=== PATIENT | male | born 1950 | race Caucasian/White ===

== ENCOUNTER 2025-02-19 07:34 | Emergency (ER) | payer MEDICARE, OTHER, SELFPAY ==
[2025-02-19 08:05] VITALS: BP 151/87; PULSE 87; RESP 15; TEMP 36.8; O2SAT 96
--- NOTE | 2025-02-19 08:33 | DI.CT_ITS ---
Exam(s) CT ABDOMEN PELVIS W EXAM: CT ABDOMEN PELVIS W CLINICAL HISTORY: Left flank pain TECHNIQUE: Imaging Protocol: Axial computed tomography images with coronal and sagittal reformatted images were created and reviewed. CONTRAST MATERIAL: Intravenous: Omnipaque 350 Contrast volume:100 mL Oral: No COMPARISON: No exams were available for comparison FINDINGS: ABDOMEN: Lung Bases: Coronary artery calcifications are present. There is a small hiatal hernia. Liver: Normal density. There is a tiny cyst in the caudal aspect of the right lobe of the liver. No suspicious hepatic masses are present. Portal, Superior Mesenteric, and Splenic Veins: Unremarkable. Gallbladder and Biliary Tract: No radiodense calculus or dilation. Pancreas: Normal density, no abnormal calcifications or inflammatory process. Spleen: Normal. Adrenals: No masses seen. Kidneys: Normal size, contour and axis. There is left nephrolithiasis. There is a 1.0 x 0.7 x 1.4 cm stone in the lower pole of the left kidney. There are 2 stones seen in the proximal left ureter causing mild hydronephrosis. The larger more distal measures 5 mm. The smaller more proximal measures 3 mm. There are bilateral simple renal cysts. No follow-up is recommended. Abdominal Aorta: Abdominal portion non-dilated. Atherosclerotic calcification is present. There is a 3 cm infrarenal abdominal aortic aneurysm. Bowel: There is diverticulosis of the colon. There is no evidence of acute diverticulitis. There is no evidence of bowel obstruction or pneumatosis. There is mild thickening of the wall of the mid sigmoid colon. No pericolonic inflammation is seen. Appendix is unremarkable. Peritoneal Cavity: No ascites, collection or mesenteric inflammatory response. No free air. Lymph Nodes: Within normal limits. Bones: Within normal limits for the patient's age. Soft Tissues: Small fat containing right inguinal hernia. PELVIS: Bladder: Symmetric distention, no gross wall thickening. Reproductive Organs: Unremarkable as visualized. Lymph Nodes: Within normal limits. Bones: Within normal limits for the patient's age. IMPRESSION: 1. Two stones seen in the proximal left ureter causing mild hydronephrosis. 2. Left nephrolithiasis. 3. 3 cm infrarenal abdominal aortic aneurysm. 4. Colonic diverticulosis. 5. Mild thickening of the wall of the mid sigmoid colon without pericolonic inflammation. This may be chronic. Outpatient evaluation with colonoscopy and/or barium enema is recommended for further characterization. Unexpected findings RADIATION DOSE DELIVERED: 536.09mGy.cm Total DLP DATA REPOSITORY: All CT scans at this facility are submitted to the National Radiology Data Registry (NRDR) Dose Index Registry (DIR) with the [employer] ([employer]). RADIATION OPTIMIZATION: All CT scans at this facility use at least one of these dose optimization techniques: automated exposure control; mA and/or kV adjustment per patient size (includes targeted exams where dose is matched to clinical indication); or iterative reconstruction.
--- NOTE | 2025-02-19 08:36 | W.ED.GENAD ---
Discharge Plan Disposition Patient Disposition: Home Discharge Details Clinical Impression: Ureterolithiasis, Hydronephrosis, left, AAA (abdominal aortic aneurysm) without rupture Primary Care Provider: Rose,Local ED Provider: Herman Faulkner Home Meds and New Rx's Prescriptions: New tamsulosin 0.4 mg capsule 0.4 mg PO DAILY Qty: 14 0RF Continued metformin 500 mg tablet 500 mg PO BID Discharge Instructions Instructions: Kidney stone diet Additional Instructions: You are seen in the emergency department for your flank pain. You are found to have 2 kidney stones on the left the larger of which measures 5 mm. Please take this medication that you have been prescribed in an attempt to pass your stone. As we discussed you develop nausea vomiting worsening pain or have any other concerns please return to the emergency department. Please call the urology clinic tomorrow to touch base with them. They are expecting your call: [phone]. For your pain please take medications as follows: 1. Take acetaminophen (Tylenol), 1,000 mg (two 500 mg tabs) every 6 hours You may also take the stronger opiate medication for pain. Please do not drive or drink alcohol after taking this opiate medication. As we discussed your CT scan found an incidental finding. You have an enlarged abdominal aorta which is called an aneurysm. Please follow-up with your primary care provider concerning this incidental finding for which you will likely benefit from an ultrasound. HPI General Date/Time Provider Initiated Documentation: 02/19/25 07:38. HPI Narrative: MDM This is an overall quite well-appearing normothermic and not tachycardic 75-year-old male with left flank pain nausea and vomiting concerning for ureterolithiasis versus diverticulitis. Patient will undergo CT scan. No pain out of proportion to suggest necrotizing soft tissue infection. No dysuria or frequency to suggest UTI however will obtain urinalysis given ureterolithiasis is on the differential. Given age will defer ketorolac. No chest pain to suggest ACS so did not obtain ECG. No cough to suggest pneumonia and no fever so I did not order chest x-ray. No right lower quadrant tenderness to suggest appendicitis. No testicular pain to suggest torsion. No trauma to the chest to suggest pneumothorax. No history of AAA to suggest ruptured AAA. 9:44 AM Comprehensive metabolic panel showing elevated renal function no prior for comparison. Mild anion gap acidosis hyperglycemia but normal bicarbonate??not consistent with DKA. Urinalysis showing large blood nitrite negative. Normal pH. Leuk esterase negative. Glycosuria. CBC showing leukocytosis mild erythrocytosis. No thrombocytopenia. 11 AM Patient takes 40 units daily subcutaneous degludec. Will convert to glargine by decreasing by 20% to 32 units per recommendation from pharmacy. 12:15 PM I spoke with Dr. Rivers who reviewed the patient's imaging. Patient was found to have 3 left-sided ureterolithiasis causing mild hydronephrosis. Patient will deserve an empiric trial of discharge with expectant outpatient management. Will pass along urology phone number. Will counseling psychologist patient on avoiding NSAIDs given renal function. Will prescribe a short course of oxycodone. Will prescribe tamsulosin. I updated patient on his infrarenal AAA seen on CT scan for which she will benefit from outpatient ultrasound. HPI This is a patient with a history of kidney stones presenting with left-sided pain. The patient reports experiencing nausea, vomiting, and left-sided pain last night, which he suspects might be due to kidney stones. He describes the pain as similar to previous episodes of kidney stones. The pain is currently less intense but still present. He also reports having diarrhea. He has no history of abdominal surgeries or rashes. The patient reports no chest pain, breathing difficulties, fevers, urinary tract infections, painful urination, or testicular pain. He did not engage in any unusual activities yesterday, and the pain woke him up from sleep. The pain does not radiate. The patient mentions that he has been advised by his urologist to consume lemonade with half a lemon each time, but he has not followed this advice for the past 3 weeks. He has a history of kidney stones, one of which required surgical intervention while another passed naturally. Exam General: Well-appearing in no acute distress speaking in complete sentences. Head: Normocephalic, atraumatic. Eye: Extraocular eye movements intact. No conjunctival injection. No scleral icterus. Ear, nose, mouth, throat: Grossly normal inspection. Normal voice, handling secretions normally. Neck: Trachea midline. Cardiovascular: Well-perfused distal extremities. Regular rate and rhythm Respiratory: Nonlabored respiration. Clear lungs bilaterally Gastrointestinal: Nondistended abdomen. Soft. Minimal left lower quadrant tenderness. No rebound. No guarding. Left CVA tenderness. Musculoskeletal: No edema. Moving all 4 extremities spontaneously. Skin: Normal for age and race, grossly normal temperature and turgor. No acute rash. Neurologic: Alert and appropriate, no apparent acute deficits. Psychiatric: Mood and manner are appropriate. Grooming and personal hygiene are appropriate. Related Data Home Medications ?Medication ?Instructions ?Recorded ?Confirmed metformin 500 mg tablet 500 mg PO BID 02/19/25 02/19/25 tamsulosin 0.4 mg capsule 0.4 mg PO DAILY #14 caps 02/19/25 Previous Rx's ?Medication ?Instructions ?Recorded tamsulosin 0.4 mg capsule 0.4 mg PO DAILY #14 caps 02/19/25 Allergies Allergy/AdvReac Type Severity Reaction Status Date / Time No Known Allergies Allergy Unverified 02/19/25 08:14 General Stated Complaint: FlankPain RICARDO: 3 Course Vital Signs Vital signs: Vital Signs Temperature 36.8 C 02/19/25 08:05 Pulse 87 02/19/25 08:05 Respiratory Rate 15 02/19/25 08:05 Blood Pressure 151/87 H 02/19/25 08:05 Pulse Oximetry 96 02/19/25 08:05 Temperature 36.8 C 02/19/25 08:05 Temperature Source Oral 02/19/25 08:05 Pulse 87 02/19/25 08:05 Respiratory Rate 15 02/19/25 08:05 Blood Pressure 151/87 H 02/19/25 08:05 Blood Pressure Position Sitting 02/19/25 08:05 Pulse Oximetry 96 02/19/25 08:05 Oxygen Delivery Method Room Air 02/19/25 08:05 Oxygen Flow Rate 0 02/19/25 08:05 Pain Level 5 02/19/25 08:05 PFSH All Active Problems (Updated 02/19/25 @ 12:21 by Herman Faulkner MD) AAA (abdominal aortic aneurysm) without rupture (Acute) Hydronephrosis, left (Acute) Ureterolithiasis (Acute) Social History Smoking/Tobacco Use Status: Never Smoking risk assessment performed?: Yes Alcohol Intake: never Drug use: Never Housing: house Do you feel safe at home: Yes Do you feel safe in your relationship?: Yes
[2025-02-19 08:56] VITALS: BP 151/87; PULSE 87; RESP 15; TEMP 36.8; O2SAT 96
[2025-02-19 09:01] LABS: Abs Immature Grans 0.04 10^3/uL (0.0-0.06); HCT 50.3 % (40.0-50.0); HGB 17.9 g/dL (13.5-17.5); Immature Grans % 0.4 %; MCH 31.3 pg (27.0-33.0); MCHC 35.6 % (32.0-36.0); MCV 88 fL (80-95); MPV 11.7 fL (8.0-11.0); Platelet Count 188 10^3/uL (130-400); RBC 5.72 10^6/uL (4.36-5.78); RDW 12.0 % (11.8-14.1); RDW-SD 38.7 fL; WBC 11.05 10^3/uL (4.4-10.8)
[2025-02-19 09:05] LABS: Glucose >=1000 mg/dL (Negative)
[2025-02-19 09:16] LABS: C & S Indicated? No; RBC >50 HPF (0-2); WBC 0-2 HPF (0-5)
[2025-02-19 09:31] LABS: ALT 41 U/L (16-63); AST 20 U/L (15-37); Albumin 4.4 g/dL (3.4-5.0); Alkaline Phosphatase 94 U/L (46-116); Anion Gap 13.9 mmol/L (3-11); BUN 21 mg/dL (7-18); Bilirubin, Total 1.3 mg/dL (0.2-1.0); CO2 26.1 mmol/L (21.0-32.0); Calcium 9.7 mg/dL (8.5-10.1); Chloride 98 mmol/L (98-107); Estimated GFR 53.07 (mL/min/1.73m2); Glucose 322 mg/dL (74-106); Potassium 4.5 mmol/L (3.5-5.1); Sodium 138 mmol/L (136-145); Total Protein 8.9 g/dL (6.4-8.2)
[2025-02-19] MEDS: Normal Saline 500 ML IV (10:02)
[2025-02-19] MEDS: fentaNYL 100 MCG/2 ML VIAL 75 MCG IVP (10:02)
[2025-02-19] MEDS: Ondansetron 4 MG/2 ML VIAL IVP (10:03)
[2025-02-19] MEDS: Normal Saline - Diluent 50 ML VIAL IJ (10:46)
[2025-02-19] MEDS: Omnipaque 350 MG/ML 500 ML BTL-Imaging package 100 ML IJ (10:47)
[2025-02-19] MEDS: Insulin Glargine 100 UNITS/ML UNIT 32 UNITS SC (11:14)
[2025-02-19] MEDS: Tamsulosin 0.4 MG CAPCR PO (12:29)
== END 2025-02-19 12:36 | disposition home or self-care (01) ==
PROVIDERS: Emergency Provider Emergency Medicine
DX: N13.2 Hydronephrosis with renal and ureteral calculous obstruction (principal); I71.40 Abdominal aortic aneurysm, without rupture, unspecified; R73.9 Hyperglycemia, unspecified
CPT/HCPCS: 99285; 99284; 36416; 36415; 82962; 96372; 96374; 96375; 80053; 96361; 74177; 81003; 81015; 85025; J1815; J2405; J3010